=== PATIENT | female | born 1975 ===

== ENCOUNTER 2018-09-04 09:57 | Emergency (ER) | payer MEDICAID ==
[2018-09-04 10:54] VITALS: TEMP 98
[2018-09-04 11:00] VITALS: BMI 37.9
[2018-09-04 11:21] LABS: BASO # 0.01 K/mm3 (0.0-2.0); BASO % 0.2 % (0.0-3.0); EOS # 0.2 (0.0-0.7); EOS % 3.7 % (1.5-5.0); GRAN # 2.7 (1.4-6.5); GRAN % 47.2 % (50.0-68.0); LYMPH # 2.5 (1.2-3.4); LYMPH % 42.9 % (22.0-35.0); MEAN CELL VOLUME 87.5 fl (80.0-105.0); MEAN CORPUSCULAR HEMOGLOBIN 29.5 pg (25.0-35.0); MEAN CORPUSCULAR HGB CONC 33.7 g/dl (31.0-37.0); MEAN PLATELET VOLUME 9.8 fl (7.0-11.0); MONO # 0.3 (0.1-0.6); RBC 4.41 10^6/uL (3.5-6.1); RED CELL DISTRIBUTION WIDTH 14.5 % (11.5-14.5); WHITE BLOOD COUNT 5.7 10^3/uL (4.5-11.0)
--- NOTE | 2018-09-04 11:31 | ED PDOC ---
Arrival/HPI - General Chief Complaint: Chest Pain Time Seen by Provider: 09/04/18 10:33 Historian: Patient - History of Present Illness Narrative History of Present Illness (Text): 09/04/18 11:11 A 43 year old female, with no significant past medical history, presents to the emergency department complaining of pressure-like chest pain for the past 3 days. Patient reports pain comes and goes. States along with chest pain, patient began experiencing heaviness/numbness to left arm, and pain to left elbow. Also, this morning, patient began experiening shortness of breath and lightheadedness. Patient denies any leg swelling, trauma, or any other complaints at this time. Denies any heavy-lifting or excercising. No PMD Past Medical History - Provider Review Nursing Documentation Reviewed: Yes - Cardiac Hx Cardiac Disorders: No - Pulmonary Hx Respiratory Disorders: No - Neurological Hx Neurological Disorder: No - HEENT Hx HEENT Disorder: No - Hematological/Oncological Hx Blood Disorders: No - Integumentary Hx Dermatological Disorder: No - Musculoskeletal/Rheumatological Hx Musculoskeletal Disorders: No - Gastrointestinal Hx Gastrointestinal Disorders: No - Genitourinary/Gynecological Hx Genitourinary Disorders: No - Psychiatric Hx Psychophysiologic Disorder: No Hx Depression: Yes Hx Substance Use: Yes (Marijuana) - Surgical History Hx Cholecystectomy: Yes Hx Musculoskeletal Surgery: Yes (Knee and ankle ligament repair) Hx Tubal Ligation: Yes - Anesthesia Hx Anesthesia: No Family/Social History - Physician Review Nursing Documentation Reviewed: Yes Family/Social History: No Known Family HX Smoking Status: Heavy Smoker > 10 Cigarettes Daily Hx Alcohol Use: Yes Frequency of alcohol use: Socially Hx Substance Use: Yes (Marijuana) Allergies/Home Meds Allergies/Adverse Reactions: Allergies No Known Allergies Allergy (Unverified 09/04/18 11:14) Home Medications: Home Meds Medication Instructions Recorded Confirmed Sertraline [Zoloft] 50 mg PO DAILY 09/04/18 09/04/18 Review of Systems - Physician Review All systems were reviewed & negative as marked: Yes - Review of Systems Respiratory: SOB Cardiovascular: Chest Pain Musculoskeletal: absent: Other (no leg swelling) Neurological: Other (left arm heaviness/numbness) Physical Exam - Physical Exam Narrative Physical Exam (Text): Gen: VS reviewed, alert, well developed, well nourished, nontoxic, mild distress. ENT: normal pharynx. Eye: EOMI, PERRL. Neck: no JVD, supple, no adenopathy. CV: regular rate, regular rhythm, no rubs, no murmur, no gallops, S1, S2, pulses equal and strong. Pulm: no distress, clear to auscultation, no wheeze, no rhonchi, breath sounds equal, no rales. Abd: soft, nontender, no guarding, no rebound, no rigidity, normal bowel sounds. Ext: no edema. Skin: good color, no rash, no cyanosis. Psych: responds appropriately to questions, normal affect. Neuro: oriented x 3, CN2-12 intact grossly, motor intact, sensation intact. Vital Signs Reviewed: Yes Vital Signs Temp Pulse Resp BP Pulse Ox 09/04/18 10:45 98 F 61 12 120/69 99 09/04/18 09:57 98 F 62 12 120/69 99 Temperature: Afebrile Blood Pressure: Normal Pulse: Regular Respiratory Rate: Normal Appearance: Positive for: Well-Appearing, Non-Toxic, Comfortable Pain Distress: None Mental Status: Positive for: Alert and Oriented X 3 Medical Decision Making ED Course and Treatment: 09/04/18 11:15 Impression: 43 year old female with chest pain. Plan: -- EKG -- Chest X-ray -- Labs -- Reassess and disposition Progress Notes: 09/04/18 13:28 heart score = 2 09/04/18 14:51 patient feel well and ready to go home, will follow up with pcp. patient understands that there is still a low possibility of cardiac origin of chest pain and will follow up with cardiology for further evaluation. patient agrees to return immediately for any new or worsening symptoms. - Lab Interpretations I have reviewed the lab results: Yes - RAD Interpretation Narrative RAD Interpretations (Text): 09/04/2018 12:03 Chest X-ray IMPRESSION: No active disease. Dictator: Mao Mitchell MD Radiology Orders: 09/04/18 11:15 CHEST PORTABLE [RAD] Stat - EKG Interpretation EKG Interpretation (Text): 09/04/18 14:01 1006: nsr at 69 bpm, nml qrs, nml axis, no acute sttw abn Interpreted by ED Physician: Yes - Scribe Statement The provider has reviewed the documentation as recorded by the Pauline Warren Provider Scribe Attestation: All medical record entries made by the Scribe were at my direction and personally dictated by me. I have reviewed the chart and agree that the record accurately reflects my personal performance of the history, physical exam, medical decision making, and the department course for this patient. I have also personally directed, reviewed, and agree with the discharge instructions and disposition. Disposition/Present on Arrival - Present on Arrival Any Indicators Present on Arrival: No History of DVT/PE: No History of Uncontrolled Diabetes: No Urinary Catheter: No History of Decub. 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 Please consider not smoking...please. DUDLEY CRAIN, thank you for letting us take care of you today. Your provider was Dr. George Barrios and you were treated for chest pain. The emergency medical care you received today was directed at your acute symptoms. If you were prescribed any medication, please fill it and take as directed. It may take several days for your symptoms to resolve. Return to the Emergency Department if your symptoms worsen, do not improve, or if you have any other problems. Please contact your doctor or call one of the physicians/clinics you have been referred to that are listed on the Patient Visit Information form that is included in your discharge packet. Bring any paperwork you were given at discharge with you along with any medications you are taking to your follow up visit. Our treatment cannot replace ongoing medical care by a primary care provi luis a outside of the emergency department. Thank you for allowing the [facility] to be part of your care today. If you had an X-Ray or CT scan: A Radiologist will review the ED reading if any change in treatment is needed we will contact you. If you had a blood, urine, or wound culture: It will take several days for the results, if any change in treatment is needed we will contact you. If you had an STI test: It will take 48 hours for the results. Please call after 1 week if you have not heard back. Referrals: Dae Ta MD [Staff Provider] - Follow up with primary [employer] [Outside] - Follow up with primary Forms: [employer] (Indonesian)
[2018-09-04 11:33] LABS: INR 1.05; PROTHROMBIN TIME 12.1 SECONDS (9.4-12.5)
[2018-09-04 11:34] LABS: BLOOD UREA NITROGEN 13 mg/dL (7-21); GFR NON-AFRICAN AMERICAN > 60
[2018-09-04 11:35] LABS: ALB/GLOB RATIO 1.1 (1.1-1.8); ALT/SGPT 24 U/L (7-56); AST/SGOT 26 U/L (14-36); CALCIUM 9.1 mg/dL (8.4-10.5); HDL CHOLESTEROL 54 mg/dL (29-60)
[2018-09-04 11:42] LABS: D DIMER < 200 ng/mlDDU (0-243)
[2018-09-04 11:45] LABS: LDL CHOLESTEROL 111 mg/dL (0-129)
[2018-09-04 11:48] LABS: TROPONIN I < 0.01 ng/mL
--- NOTE | 2018-09-04 12:06 | RAD ---
Date of service: 09/04/2018 HISTORY: chest pain COMPARISON: No prior. FINDINGS: LUNGS: No active pulmonary disease. PLEURA: No significant pleural effusion identified, no pneumothorax apparent. CARDIOVASCULAR: No aortic atherosclerotic calcification present. Normal cardiac size. No pulmonary vascular congestion. OSSEOUS STRUCTURES: No significant abnormalities. VISUALIZED UPPER ABDOMEN: Normal. OTHER FINDINGS: None. IMPRESSION: No active disease.
[2018-09-04 13:54] VITALS: BP 116/72; PULSE 55; RESP 18; O2SAT 100
--- NOTE | 2018-09-04 19:24 | CARD ---
APPROVED REPORT Date of service: 09/04/2018 EKG Measurement Heart [id number] <Conclusion> Normal sinus rhythm Normal ECG
== END 2018-09-04 15:15 | disposition home or self-care (01) ==
LOC: ED 09:57
DX: R07.9 Chest pain, unspecified (principal)

== ENCOUNTER 2018-11-26 08:08 | Emergency (ER) | payer MEDICAID ==
[2018-11-26 08:09] VITALS: BMI 37.9
[2018-11-26 08:14] VITALS: RESP 18
[2018-11-26] MEDS ORDERED: Lidocaine 1% Inj (20ml) SC STA (08:54)
--- NOTE | 2018-11-26 08:58 | ED PDOC ---
Arrival/HPI - General Historian: Patient - History of Present Illness Narrative History of Present Illness (Text): 11/26/18 08:49 Patient is a 43F who was grabbing for a pendant earlier this morning and subsequently had it penetrate into her R hand. Pendant is anchor shaped and has partially penetrated into the palmar aspect between the first and second digit. She denies any fevers/chills at this time; does report altered sensation of the first digit of her R hand. Last tetanus >10 years ago Time/Duration: Prior to Arrival, 1-3 hours <Cade Ann - Last Filed: 11/26/18 10:44> - History of Present Illness Symptom Onset: Sudden <Tomasz Rodriguez - Last Filed: 11/30/18 08:17> - General Chief Complaint: Foreign Body Time Seen by Provider: 11/26/18 08:23 Past Medical History - Tetanus Immunization Tetanus Immunization: >10 years Ago - Reproductive Currently : Unknown - Cardiac Hx Cardiac Disorders: No - Pulmonary Hx Respiratory Disorders: No - Neurological Hx Neurological Disorder: No - HEENT Hx HEENT Disorder: No - Hematological/Oncological Hx Blood Disorders: No - Integumentary Hx Dermatological Disorder: No - Musculoskeletal/Rheumatological Hx Musculoskeletal Disorders: No - Gastrointestinal Hx Gastrointestinal Disorders: No - Genitourinary/Gynecological Hx Genitourinary Disorders: No - Psychiatric Hx Psychophysiologic Disorder: No Hx Depression: Yes Hx Substance Use: Yes (Marijuana) - Surgical History Hx Cholecystectomy: Yes Hx Musculoskeletal Surgery: Yes (Knee and ankle ligament repair) Hx Tubal Ligation: Yes - Anesthesia Hx Anesthesia: No <Cade Ann - Last Filed: 11/26/18 10:44> - Provider Review Nursing Documentation Reviewed: Yes <Tomasz Rodriguez - Last Filed: 11/30/18 08:17> Family/Social History - Physician Review Nursing Documentation Reviewed: Yes Family/Social History: Unknown Family HX Smoking Status: Heavy Smoker > 10 Cigarettes Daily Hx Alcohol Use: Yes Hx Substance Use: Yes (Marijuana) <Cade Ann - Last Filed: 11/26/18 10:44> Allergies/Home Meds <Cade Ann - Last Filed: 11/26/18 10:44> <Tomasz Rodriguez - Last Filed: 11/30/18 08:17> Allergies/Adverse Reactions: Allergies No Known Allergies Allergy (Unverified 09/04/18 11:14) Home Medications: Home Meds Medication Instructions Recorded Confirmed Sertraline [Zoloft] 50 mg PO DAILY 09/04/18 09/04/18 Review of Systems - Review of Systems Constitutional: Normal Eyes: Normal ENT: Normal Respiratory: Normal Cardiovascular: Normal Gastrointestinal: Normal Genitourinary Female: Normal Musculoskeletal: Normal Skin: Other (puncture w/ foreign body) Neurological: Normal Endocrine: Normal Hemo/Lymphatic: Normal Psychiatric: Normal <Cade Ann - Last Filed: 11/26/18 10:44> - Physician Review All systems were reviewed & negative as marked: Yes <Tomasz Rodriguez - Last Filed: 11/30/18 08:17> Physical Exam Vital Signs Temp Pulse Resp BP Pulse Ox 11/26/18 08:12 98.1 F 90 18 164/93 H 100 Temperature: Afebrile Blood Pressure: Hypertensive Pulse: Regular Respiratory Rate: Normal Appearance: Positive for: Well-Appearing, Non-Toxic, Comfortable Pain Distress: None Mental Status: Positive for: Alert and Oriented X 3 - Systems Exam Head: Present: Atraumatic, Normocephalic Pupils: Present: PERRL Extroacular Muscles: Present: EOMI Conjunctiva: Present: Normal Mouth: Present: Moist Mucous Membranes Neck: Present: Normal Range of Motion Respiratory/Chest: Present: Clear to Auscultation, Good Air Exchange. No: Respiratory Distress, Accessory Muscle Use Cardiovascular: Present: Regular Rate and Rhythm, Normal S1, S2. No: Murmurs Abdomen: No: Tenderness, Distention, Peritoneal Signs Back: Present: Normal Inspection Upper Extremity: Present: Other (Medium sized gold anchor shaped pendedent embedded between first and second digit of R hand approx 1cm - tender to palpation ) Lower Extremity: Present: Normal Inspection. No: Edema Neurological: Present: GCS=15, CN II-XII Intact, Speech Normal Skin: Present: Warm, Dry, Normal Color. No: Rashes Psychiatric: Present: Alert, Oriented x 3, Normal Insight, Normal Concentration <Cade Ann - Last Filed: 11/26/18 10:44> Vital Signs Reviewed: Yes Vital Signs Temp Pulse Resp BP Pulse Ox 11/26/18 08:12 98.1 F 90 18 164/93 H 100 <Tomasz Rodriguez - Last Filed: 11/30/18 08:17> Medical Decision Making ED Course and Treatment: 11/26/18 09:48 Hand was sterilized w/ iodine Distal nerve block performed using approximately 2-3cc lidocaine w/o epinpehrine Pendent was manipulated out of incision site Will admin tetanus vaccine Hand XR pending to eval for remaining foreign body 11/26/18 10:45 Hand XR wnl Bandaged w/ dry dressing DC HOME w/ keflex and motrin prn <Cade Ann - Last Filed: 11/26/18 10:44> ED Course and Treatment: In agreement with resident note, which includes further HPI details. Patient was seen and evaluated with resident, came up with plan and treatment together. 43 year old female presents complaining of an anchor shaped pendent penetrated into the palmar aspect between her right first and second digit. Plan: -- Boostrix Vaccine, Keflex, Lidocaine 1%, Motrin Tab -- Hand right 3V X-ray -- Reassess and disposition 11/26/18 9:48 Pendent jewelry was removed by me with resident assistance. Procedure documented above. There was no bleeding during removal. Patient is completely neurovascularly intact before and after procedure. She tolerating procedure well. She was bandaged and dressing and given keflex for prophylaxis. She will follow up with her primary care doctor this week. - RAD Interpretation Radiology Orders: 11/26/18 09:28 HAND RIGHT 3 VIEWS [RAD] Stat Transportation Attendant: Radiologist - Medication Orders Current Medication Orders: Discontinued Medications Ibuprofen (Motrin Tab) 600 mg PO STAT STA Stop: 11/26/18 08:56 Last Admin: 11/26/18 09:03 Dose: 600 mg MAR Pain/Vitals Document 11/26/18 09:03 GMI (Rec: 11/26/18 09:04 GMI [id number]) Pain Reassessment Is This A Pain ReAssessment? Yes Sleep Is patient sleeping during reassessment? No Presence of Pain Presence of Pain Yes Pain Scale Used Protocol: PSCALES Pain Scale Used Numeric Location Left, Right or Bilateral Right Pain Location Body Site Hand Description Intermittent Intensity 8 Scale Used Numeric Pain Behavior Facial Grimacing Lidocaine HCl (Lidocaine 1% (20ml)) 0 ml SC STAT STA Stop: 11/26/18 08:55 Last Admin: 11/26/18 09:05 Dose: 3 ml Subcutaneous Administrations Document 11/26/18 09:05 GMI (Rec: 11/26/18 09:05 GMI [id number]) Charges for Administration # of Subcutaneous Administrations 1 Tetanus/Reduced Diphtheria/Acell Pertussis (Boostrix Vaccine Inj) 0.5 ml IM .ONCE ONE Stop: 11/26/18 09:29 Last Admin: 11/26/18 09:54 Dose: 0.5 ml Immunization Registry Document 11/26/18 09:54 GMI (Rec: 11/26/18 09:54 GMI [id number]) [facility]-Date provided 11/26/18 MAR Immunization Data Document 11/26/18 09:54 GMI (Rec: 11/26/18 09:54 GMI [id number]) Immunization Data Vaccine Information Sheet Given Yes <Tomasz Rodriguez - Last Filed: 11/30/18 08:17> - Scribe Statement The provider has reviewed the documentation as recorded by the Pauline Mccann Provider Scribe Attestation: All medical record entries made by the Galeibrichard were at my direction and personally dictated by me. I have reviewed the chart and agree that the record accurately reflects my personal performance of the history, physical exam, medical decision making, and the department course for this patient. I have also personally directed, reviewed, and agree with the discharge instructions and disposition. <Tomasz Rodriguez - Last Filed: 11/30/18 08:17> Disposition/Present on Arrival - Present on Arrival Any Indicators Present on Arrival: No History of DVT/PE: No History of Uncontrolled Diabetes: No Urinary Catheter: No History of Decub. Ulcer: No History Surgical Site Infection Following: None - Disposition Have Diagnosis and Disposition been Completed?: Yes Disposition Time: 10:46 Patient Plan: Discharge <Cade Ann - Last Filed: 11/26/18 10:44> <Tomasz Rodriguez - Last Filed: 11/30/18 08:17> - Disposition Diagnosis: Foreign body of right hand Disposition: HOME/ ROUTINE Condition: IMPROVED Discharge Instructions (ExitCare): Foreign Body in Skin Additional Instructions: DUDLEY CRAIN, thank you for letting us take care of you today. Your provider was Tomasz Rodriguez DO and you were treated for Foreign body in hand removal. The emergency medical care you received today was directed at your acute symptoms. If you were prescribed any medication, please fill it and take as directed. It may take several days for your symptoms to resolve. Return to the Emergency Department if your symptoms worsen, do not improve, or if you have any other problems. Please contact your doctor or call one of the physicians/clinics you have been referred to that are listed on the Patient Visit Information form that is included in your discharge packet. Bring any paperwork you were given at [facility] with you along with any medications you are taking to your follow up visit. Our treatment cannot replace ongoing medical care by a primary care provider outside of the emergency department. Thank you for allowing the [employer] team to be part of your care today. If you had an X-Ray or CT scan: A Radiologist will review the ED reading if any change in treatment is needed we will contact you. If you had a blood, urine, or wound culture: It will take several days for the results, if any change in treatment is needed we will contact you. If you had an STI test: It will take 48 hours for the results. Please call after 1 week if you have not heard back. Prescriptions: Cephalexin [Keflex] 500 mg PO TID #15 capsule Referrals: Alanna Jett MD [Family Provider] - Follow up with primary Forms: [employer] (Bengali), WORK NOTE
[2018-11-26] MEDS ORDERED: TDAP Vaccine 0.5 mL Syr IM ONE (09:28)
[2018-11-26] MEDS ORDERED: Bacitracin 500 Units/gm Oint Foilpak UD ONE (09:38)
[2018-11-26 10:39] VITALS: BP 149/57; PULSE 85; TEMP 98; O2SAT 99
--- NOTE | 2018-11-26 13:18 | RAD ---
PROCEDURE: Right Hand Radiographs. HISTORY: Rule out foreign body COMPARISON: None. FINDINGS: BONES: Normal. No fracture. JOINTS: Normal. No osteoarthritic changes. SOFT TISSUES: Soft tissues appear grossly unremarkable without radiopaque foreign bodies. No evidence of subcutaneous emphysema. OTHER FINDINGS: None. IMPRESSION: Normal right hand radiographs.
== END 2018-11-26 10:48 | disposition home or self-care (01) ==
LOC: ED 08:08
DX: S60.551A Superficial foreign body of right hand, initial encounter (principal); X58.XXXA Exposure to other specified factors, initial encounter; Z23 Encounter for immunization